=== PATIENT | male | born 1980 | race Caucasian/White ===

== ENCOUNTER 2022-11-16 05:05 | Emergency (ER) | payer MEDICAID ==
[~2022-11-16] VITALS: Ht 180.3 cm; Wt 77.0 kg
[2022-11-16 05:24] VITALS: O2SAT 98
[2022-11-16] MEDS ORDERED: ONDA4TAB50 MT (05:33)
[2022-11-16] MEDS ORDERED: NALO4SPR BOTHNSTRLS (05:33)
[2022-11-16] MEDS ORDERED: ONDANSETRON 4MG ODT PO ONE (05:45)
[2022-11-16 06:20] VITALS: BP 145/98; PULSE 93; RESP 22; TEMP 98.6
== END 2022-11-16 06:50 | disposition home or self-care (01) ==
LOC: ER 05:29
DX: R11.2 Nausea with vomiting, unspecified (principal)
CPT/HCPCS: 99283; Q0162